=== PATIENT | female | born 1985 | race Caucasian/White ===

== ENCOUNTER 2016-10-01 22:26 | Emergency (ER) | payer MEDICAID ==
[~2016-10-01] VITALS: Ht 160 cm; Wt 61.4 kg
[~2016-10-01 22:26] MED LIST: ADVIL100 MG/5 M PO; AMBIEN 5MG TABLE5 MG PO; AZITHROMYC200 MG/5 M PO; CEPHALEXIN250 MG/5 M PO; CLEOCIN HC150 MG/CAP PO; DIFLUCAN200 MG PO; LEXAPRO 10MG10 MG PO; METHERGINE0.2 MG/TAB PO; MICATIN2% TP; MOTRIN 600600 MG/TAB PO; NORCO 325 MG-51 TAB PO; PRENATAL1 TA6 PO; PRENTAL 1 PLUS1 TAB PO; ROBITUSSIN A-C S1 M1 PO; ZITHROMAX Z PA250 MG PO; ZOLOFT20 MG/ML PO
[2016-10-01 22:29] VITALS: TEMP 97.7
[2016-10-01 23:13] LABS: BASO % 0.2 % (0.0-2.0); EOS # 0.1 (0.0-0.7); EOS % 1.3 % (0-4.0); GRAN # 6.6 (1.4-6.5); GRAN % 66.4 % (42.2-75.2); LYMPH # 2.4 (1.2-3.4); LYMPH % 24.3 % (20.0-51.0); MEAN CELL VOLUME 98 fl (80.0-100.0); MEAN CORPUSCULAR HGB CONC 33 g/dl (33.0-37.0); MEAN PLATELET VOLUME 10.1 fl (7.4-10.4); MONO # 0.6 (0.1-0.6); MONO % 6.4 % (1.7-9.3); PLATELET COUNT 220 K/mm3 (130-400); RED BLOOD COUNT 3.48 M/mm3 (4.10-5.30); REDCELL DISTRIBUTION WIDTH-CV 13.1 % (11.5-14.5); WHITE BLOOD COUNT 9.9 K/mm3 (4.8-10.8)
[2016-10-01 23:14] LABS: HEMATOCRIT 34.1 % (37.0-47.0); HEMOGLOBIN 11.4 g/dl (12.5-16.0); MEAN CORPUSCULAR HEMOGLOBIN 33 pg (27.0-31.0)
[2016-10-01 23:23] LABS: ALBUMIN 3.4 gm/dL (3.5-5.0); BILIRUBIN,TOTAL 0.4 mg/dL (0.0-1.0); CALCIUM 8.5 mg/dL (8.4-10.2); CREATININE, serum 0.47 mg/dL (0.52-1.25); POTASSIUM 3.4 mmol/L (3.4-5.0); TOTAL PROTEIN 6.4 gm/dL (6.4-8.2)
[2016-10-01] MEDS ORDERED: PRENATAL VITAMI1 T12 PO (23:36)
[2016-10-01 23:39] LABS: PH 5 (5-8); URINE APPEARANCE Hazy; URINE BACTERIA Rare /hpf; URINE BILIRUBIN Negative (NEGATIVE); URINE BLOOD Negative (NEGATIVE); URINE COLOR Yellow; URINE GLUCOSE Negative (NEGATIVE); URINE KETONE Negative (NEGATIVE); URINE RBC 0-2 /hpf; URINE UROBILINOGEN Negative (NEGATIVE); URINE WBC 0-2 /hpf
[2016-10-02 00:14] VITALS: BP 104/57; PULSE 85
== END 2016-10-02 00:14 | disposition home or self-care (01) ==
LOC: COL.ER 22:26
PROVIDERS: Nurse Practitioner
DX: O26.892 Other specified pregnancy related conditions, second trimester (principal); R00.2 Palpitations; R53.1 Weakness; O99.332 Smoking (tobacco) complicating pregnancy, second trimester; F17.210 Nicotine dependence, cigarettes, uncomplicated; Z3A.27 27 weeks gestation of pregnancy; Z87.42 Personal history of other diseases of the female genital tract; Z98.890 Other specified postprocedural states
CPT/HCPCS: J7030

== ENCOUNTER 2016-10-14 20:58 | Outpatient (CLI) | payer MEDICAID ==
[~2016-10-14] VITALS: Ht 160 cm; Wt 65.0 kg
[~2016-10-14 20:58] MED LIST changes: +PRENATAL VITAMI1 T12 PO
[2016-10-14 22:30] VITALS: BP 110/69; PULSE 104; TEMP 98.3
== END 2016-10-14 22:30 | disposition home or self-care (01) ==
LOC: LDRO 20:58
DX: Z34.83 Encounter for supervision of other normal pregnancy, third trimester (principal); Z3A.29 29 weeks gestation of pregnancy

== ENCOUNTER 2016-11-04 12:07 | Emergency (ER) | payer MEDICAID ==
[~2016-11-04] VITALS: Ht 160 cm; Wt 68.2 kg
[2016-11-04 12:17] VITALS: BP 128/72; PULSE 94; TEMP 99
[2016-11-04] MEDS ORDERED: ANUSOL HC CREAM30 GM TP (14:18)
== END 2016-11-04 14:50 | disposition home or self-care (01) ==
LOC: LDRO 12:07 → COL.ER 12:07 → EDSTATUS 12:12 → COL.ER 14:50
DX: K64.5 Perianal venous thrombosis (principal); F17.210 Nicotine dependence, cigarettes, uncomplicated

== ENCOUNTER 2016-11-12 01:55 | Outpatient (CLI) | payer MEDICAID ==
[~2016-11-12] VITALS: Ht 160 cm; Wt 65.9 kg
[~2016-11-12 01:55] MED LIST changes: +ANUSOL HC CREAM30 GM TP
[2016-11-12 02:30] VITALS: BP 121/72; PULSE 92; TEMP 97.9
[2016-11-12 03:03] VITALS: BP 118/63; PULSE 93
== END 2016-11-12 03:15 | disposition home or self-care (01) ==
LOC: LDRO 01:55
DX: O26.893 Other specified pregnancy related conditions, third trimester (principal); R10.2 Pelvic and perineal pain; Z3A.33 33 weeks gestation of pregnancy

== ENCOUNTER 2016-11-22 20:20 | Outpatient (CLI) | payer MEDICAID ==
[~2016-11-22] VITALS: Ht 160 cm; Wt 70.5 kg
[2016-11-22 20:30] VITALS: BP 130/69; PULSE 102; TEMP 97.7
[2016-11-22 20:39] VITALS: BP 130/69; PULSE 102; TEMP 97.7
[2016-11-22 21:30] VITALS: BP 107/60; PULSE 78
== END 2016-11-22 22:00 | disposition home or self-care (01) ==
LOC: LDRO 20:20
DX: Z34.83 Encounter for supervision of other normal pregnancy, third trimester (principal); Z3A.34 34 weeks gestation of pregnancy

== ENCOUNTER 2016-12-16 00:21 | Outpatient (CLI) | payer MEDICAID ==
[~2016-12-16] VITALS: Ht 160 cm; Wt 73.2 kg
[2016-12-16 00:53] VITALS: BP 123/67; PULSE 102; TEMP 98.3
== END 2016-12-16 02:10 | disposition home or self-care (01) ==
LOC: LDRO 00:21
DX: O62.9 Abnormality of forces of labor, unspecified (principal); Z3A.37 37 weeks gestation of pregnancy

== ENCOUNTER 2016-12-21 21:42 | Inpatient (IN) | payer MEDICAID ==
[~2016-12-21] VITALS: Ht 160 cm; Wt 73.2 kg
[2016-12-21 22:10] VITALS: BP 146/77; PULSE 97; TEMP 98.1
[2016-12-21 22:26] VITALS: TEMP 98.2
[2016-12-22] VITALS (14 sets, daily range): BP systolic 105–141; BP diastolic 58–75; PULSE 70–133; TEMP 97.5–99.9
[2016-12-22 00:47] LABS: BASO % 0.2 % (0.0-2.0); EOS # 0.1 (0.0-0.7); EOS % 0.6 % (0-4.0); GRAN # 10.9 (1.4-6.5); GRAN % 75.3 % (42.2-75.2); HEMATOCRIT 39.5 % (37.0-47.0); HEMOGLOBIN 13.4 g/dl (12.5-16.0); LYMPH # 2.5 (1.2-3.4); LYMPH % 17.6 % (20.0-51.0); MEAN CELL VOLUME 96 fl (80.0-100.0); MEAN CORPUSCULAR HEMOGLOBIN 33 pg (27.0-31.0); MEAN CORPUSCULAR HGB CONC 34 g/dl (33.0-37.0); MEAN PLATELET VOLUME 10.7 fl (7.4-10.4); MONO # 0.8 (0.1-0.6); MONO % 5.6 % (1.7-9.3); PLATELET COUNT 212 K/mm3 (130-400); WHITE BLOOD COUNT 14.5 K/mm3 (4.8-10.8)
[2016-12-23 06:30] VITALS: BP 123/80; PULSE 72; TEMP 98.3
== END 2016-12-23 11:00 | disposition home or self-care (01) | DRG 775 ==
LOC: LDRO 21:42 → LDR 12-22 00:02 → OB 12-22 00:02
PROVIDERS: Obstetrics & Gynecology
PROC: 10E0XZZ Delivery of Products of Conception, External Approach (ICD-10-PCS; principal; 2016-12-22)
DX: O69.81X0 Labor and delivery complicated by cord around neck, without compression, not applicable or unspecified (principal); O99.334 Smoking (tobacco) complicating childbirth; F17.210 Nicotine dependence, cigarettes, uncomplicated; Z3A.38 38 weeks gestation of pregnancy; Z37.0 Single live birth
CPT/HCPCS: J2590; J2795; J7120

== ENCOUNTER 2017-11-09 20:46 | Inpatient (IN) | payer MEDICAID ==
[2017-11-09] VITALS (10 sets, daily range): BP systolic 103–127; BP diastolic 55–79; PULSE 79–125; TEMP 98
[~2017-11-09] VITALS: Ht 160 cm; Wt 67.3 kg
[2017-11-09 21:45] LABS: BASO % 0.4 % (0.0-2.0); EOS # 0.1 (0.0-0.7); EOS % 0.4 % (0-4.0); GRAN # 8.5 (1.4-6.5); GRAN % 74.8 % (42.2-75.2); HEMATOCRIT 40.7 % (37.0-47.0); LYMPH # 2.1 (1.2-3.4); LYMPH % 18.7 % (20.0-51.0); MEAN CELL VOLUME 94 fl (80.0-100.0); MEAN CORPUSCULAR HEMOGLOBIN 33 pg (27.0-31.0); MEAN CORPUSCULAR HGB CONC 34 g/dl (33.0-37.0); MEAN PLATELET VOLUME 10.2 fl (7.4-10.4); MONO # 0.6 (0.1-0.6); MONO % 5.3 % (1.7-9.3); PLATELET COUNT 258 K/mm3 (130-400); RED BLOOD COUNT 4.31 M/mm3 (4.10-5.30); REDCELL DISTRIBUTION WIDTH-CV 12.1 % (11.5-14.5)
[2017-11-10 00:15] VITALS: BP 116/58; PULSE 77
[2017-11-10 01:30] VITALS: BP 106/51; PULSE 76
[2017-11-10 04:05] VITALS: BP 116/52; PULSE 72
[2017-11-10] MEDS ORDERED: IBU600 MG PO (07:48)
[2017-11-10] MEDS ORDERED: PRENATAL VITAMI1 T12 PO (07:51)
[2017-11-10 08:01] VITALS: BP 112/65; PULSE 76; TEMP 98.1
[2017-11-10 21:31] VITALS: BP 119/83; PULSE 77; TEMP 98.4
== END 2017-11-10 23:55 | disposition home or self-care (01) | DRG 775 ==
LOC: LDRO 20:46 → LDR 21:00 → OB 11-10 00:15
PROVIDERS: Obstetrics & Gynecology
PROC: 10E0XZZ Delivery of Products of Conception, External Approach (ICD-10-PCS; principal; 2017-11-09)
DX: O80 Encounter for full-term uncomplicated delivery (principal); Z3A.37 37 weeks gestation of pregnancy; Z37.0 Single live birth
CPT/HCPCS: J2590; J7120

== ENCOUNTER 2018-12-23 19:48 | Outpatient (CLI) | payer MEDICAID ==
[~2018-12-23] VITALS: Ht 160 cm; Wt 67.7 kg
[~2018-12-23 19:48] MED LIST changes: +IBU600 MG PO
--- NOTE | 2018-12-23 20:00 | NUR ---
Pt arrived on unit ambulatory escorted by significant other and with complaints of left sided back pain. Pt reports some contractions, denies any leaking of fluid, vaginal bleeding and reports normal movement. EFM and toco monitors started. Vital signs WNL. Pt reports no issues or pain with urination. SVE by this RN 2-/high.
[2018-12-23 20:07] VITALS: BP 141/74; PULSE 96; TEMP 98.3
--- NOTE | 2018-12-23 20:30 | NUR ---
Spoke with Dr. Khoury regarding pt's arrival, complaints and FHR tracing reviewed. Orders for oral hydration and continued monitoring.
[2018-12-23 20:54] LABS: COLLECTION METHOD CLEAN CATCH
[2018-12-23 21:24] LABS: MUCOUS Present /lpf; PH 6 (5-8); URINE APPEARANCE Cloudy; URINE BACTERIA Rare /hpf; URINE BILIRUBIN Negative (NEGATIVE); URINE BLOOD 2+ (NEGATIVE); URINE COLOR Yellow; URINE GLUCOSE Negative (NEGATIVE); URINE KETONE 2+ (NEGATIVE); URINE LEUKOCYTE ESTERASE Trace (NEGATIVE); URINE NITRATE Negative (NEGATIVE); URINE PROTEIN(semi-quant) 1+ (NEGATIVE); URINE RBC >50 /hpf; URINE UROBILINOGEN Negative (NEGATIVE)
--- NOTE | 2018-12-23 21:25 | NUR ---
Spoke with Dr. Khoury for an update. SVE by this RN with no change. Orders for IV placement, fluid bolus, terbutaline SQ and tylenol received. See EMAR for details.
--- NOTE | 2018-12-23 22:50 | NUR ---
Spoke with Dr. Khoury for an update on pt's status. FHR tracing and ctx pattern reviewed. Orders for discharge home with instructions received. Plan of care reviewed with pt and significant other at the bedside. Both verbalized an understanding, agree with the plan and state no questions or concerns at this time.
[2018-12-23 23:00] VITALS: BP 116/59; PULSE 96
== END 2018-12-23 23:10 | disposition home or self-care (01) ==
LOC: LDRO 19:48
PROVIDERS: Obstetrics & Gynecology
DX: O26.893 Other specified pregnancy related conditions, third trimester (principal); M54.9 Dorsalgia, unspecified; Z3A.35 35 weeks gestation of pregnancy
CPT/HCPCS: J3105; J7120

== ENCOUNTER 2019-01-21 17:48 | Inpatient (IN) | payer MEDICAID ==
[~2019-01-21] VITALS: Ht 160 cm; Wt 70.0 kg
[2019-01-21] VITALS (14 sets, daily range): BP systolic 92–159; BP diastolic 55–82; PULSE 80–116; TEMP 98.2–99.5
[2019-01-21 18:47] LABS: BASO % 0.2 % (0.0-2.0); EOS # 0.1 (0.0-0.7); EOS % 0.3 % (0-4.0); GRAN # 12.9 (1.4-6.5); GRAN % 78.7 % (42.2-75.2); HEMATOCRIT 40.6 % (37.0-47.0); HEMOGLOBIN 13.7 g/dl (12.5-16.0); LYMPH # 2.4 (1.2-3.4); LYMPH % 14.4 % (20.0-51.0); MEAN CELL VOLUME 99 fl (80.0-100.0); MEAN CORPUSCULAR HEMOGLOBIN 33 pg (27.0-31.0); MEAN CORPUSCULAR HGB CONC 34 g/dl (33.0-37.0); MEAN PLATELET VOLUME 11.4 fl (7.4-10.4); MONO # 0.8 (0.1-0.6); MONO % 4.9 % (1.7-9.3); PLATELET COUNT 207 K/mm3 (130-400); RED BLOOD COUNT 4.12 M/mm3 (4.10-5.30); REDCELL DISTRIBUTION WIDTH-CV 13.5 % (11.5-14.5)
--- NOTE | 2019-01-21 20:30 | NUR ---
1799- Report from GRADY Meek. Patient arrived on L&D at 1743 for a direct admit from [facility] with orders from . EFM and TOCO on and tracing. IV started. LR bolus infusing. Labs drawn and sent. 1814- Assessment completed. Consents signed. 1829- Patient is requesting an epidural. GAIL Luna notified. 1834- GAIL Luna at bedside. Patient repositioned to sitting upright for epidural placement. FHR tracing intermittently due to maternal position. 1847- See Anesthesia Record. 1929- RN to bedside. Patient has complaints of nausea. HOB lowered. Fan on. Wet cloth applied to forehead. BP 86/47. RN remains at bedside. called with an update. 1944- at bedside. SVE 7-8//-1 by . AROM. Large amount of clear, odorless fluid noted. 1999- RN to bedside. Patient is starting to feel increased pressure and is starting to shake with contractions. to bedside. Labor room prepared for delivery. Nursery RN notified. 2002- of viable baby boy. Cord clamped and cut. Cord blood obtained. 2005- Spontaneous delivery of placenta. Fundus massaged to firm by . Pitocin infusing at 333ml/hr per protocol. Perineum intact. Ice pack applied. 2004- PP Recovery started.
--- NOTE | 2019-01-21 22:00 | NUR ---
Social Service consult entered. G11 L10. Patient and FOB only have custody of most recent 2 sons. Previous 5 children are in the care of her mother in [place] for unknown reasons to this RN. Cord Stat sent per policy.
[2019-01-22] VITALS: BP 106/63; PULSE 72; TEMP 98.6
[2019-01-22 04:00] VITALS: BP 99/57; PULSE 64; TEMP 98.1
[2019-01-22 06:58] LABS: HEMATOCRIT 33.5 % (37.0-47.0); HEMOGLOBIN 11.2 g/dl (12.5-16.0)
[2019-01-22 08:41] VITALS: BP 106/50; PULSE 71; TEMP 98.5
[2019-01-22] MEDS ORDERED: IBU600 MG PO (08:41)
--- NOTE | 2019-01-22 10:28 | NUR ---
Initial visit; Mom thanked Campus [facility] for offering congratulations and God's blessings for the of her son. Campus Aide thanked mom for choosing [facility].
[2019-01-22 16:00] VITALS: BP 101/60; PULSE 72; TEMP 98
== END 2019-01-22 22:25 | disposition home or self-care (01) | DRG 807 ==
LOC: LDR 17:48 → OB 17:48
PROVIDERS: ADMIT Obstetrics & Gynecology
PROC: 10E0XZZ Delivery of Products of Conception, External Approach (ICD-10-PCS; principal; 2019-01-21)
PROC: 3E033VJ Introduction of Other Hormone into Peripheral Vein, Percutaneous Approach (ICD-10-PCS; 2019-01-21)
PROC: 10907ZC Drainage of Amniotic Fluid, Therapeutic from Products of Conception, Via Natural or Artificial Opening (ICD-10-PCS; 2019-01-21)
DX: O69.81X0 Labor and delivery complicated by cord around neck, without compression, not applicable or unspecified (principal); Z37.0 Single live birth; O99.334 Smoking (tobacco) complicating childbirth; O99.344 Other mental disorders complicating childbirth; F41.8 Other specified anxiety disorders; Z3A.39 39 weeks gestation of pregnancy; F43.10 Post-traumatic stress disorder, unspecified; F41.0 Panic disorder [episodic paroxysmal anxiety]; Z64.1 Problems related to multiparity
CPT/HCPCS: J2590; J7120

== ENCOUNTER 2019-10-16 08:49 | Outpatient (CLI) | payer MEDICAID ==
[~2019-10-16] VITALS: Ht 160 cm; Wt 67.3 kg
[2019-10-16 08:30] VITALS: BP 124/75; PULSE 108
[2019-10-16 09:30] VITALS: BP 105/59; PULSE 102
[2019-10-16 10:00] VITALS: BP 107/55; PULSE 93
[2019-10-16 11:18] LABS: TRICYCLIC ANTIDEPRESS URINE NEGATIVE
== END 2019-10-16 10:15 | disposition short-term general hospital (02) ==
LOC: LDRO 08:49
PROVIDERS: Obstetrics & Gynecology
DX: O42.913 Preterm premature rupture of membranes, unspecified as to length of time between rupture and onset of labor, third trimester (principal); Z3A.28 28 weeks gestation of pregnancy; F17.210 Nicotine dependence, cigarettes, uncomplicated
CPT/HCPCS: J0290; J0702; J3475; J7120